=== PATIENT | male | born 1965 | race Caucasian/White ===

== ENCOUNTER 2017-01-09 08:50 | Day surgery (SDC) | payer BC ==
[~2017-01-09] VITALS: Ht 182.9 cm; Wt 47.2 kg
--- NOTE | ~2017-01-09 | OR ---
PATIENT'S NAME: ARIAN BLAIR [facility] AGE: 51 Y [address] ROOM: [place] [id number] LOCATION: [facility]OC ADMIT DATE: 01/09/2017 OR/Procedure Report DISCHARGE DATE: 01/10/2017 FAMILY PHYSICIAN: Katie Qureshi ATTENDING PHYSICIAN: Jason Kumar SURGEON: Jason Kumar MD EQUIPMENT LEAD: DATE OF PROCEDURE: 01/09/2017 PROCEDURE: Fiberoptic bronchoscopy with tumor ablation using argon plasma coagulation. INDICATION FOR PROCEDURE: Endobronchial tumor including the left mainstem with acute hypoxic respiratory failure. CONSENT: Risks and benefits of the procedure were discussed with the patient including the risk of bleeding, infection, and perforation of the trachea. The patient agrees to proceed with the procedure. PROCEDURE IN DETAIL: After the informed consent, proper time-out was called by me and the nursing staff and anesthesia. The patient was induced with general anesthesia, please refer to the Anesthesiology record. After an Olympus bronchoscope was passed through the endotracheal tube into the tracheobronchial tree, the right side was inspected briefly with no significant endobronchial lesions. The findings were described on the previous bronchoscopy. There was an endobronchial lesion that was blocking the ronn, 5% to 10% of the right mainstem and 99% to 100% of the left mainstem. After the initial inspection and suctioning, the area was cleaned using a flush of saline. Then, I tried to traverse the lesion, but I could not. After that, a probe was introduced through the bronchoscope, the APC was used using effect 5, module garrett, and an incision was made through the endobronchial lesion, multiple passes were made on the tumor, the tumor was reduced by 50% and the left mainstem opened by 50%. There was a gush of postobstructive pus that was suctioned out, the lesion could be traversed easily. After the initial airway opening, the area was then cauterized for bleeding. Hemostasis was achieved with an APC, I did have to do extra APC on the margins next to the ronn secondary to bleeding, which has stopped. After that, the remaining tumor was ablated on the surface with decreased PATIENT'S NAME: ARIAN BLAIR [facility] AGE: 51 Y [address] ROOM: [place] [id number] LOCATION: [facility]OC ADMIT DATE: 01/09/2017 OR/Procedure Report DISCHARGE DATE: 01/10/2017 FAMILY PHYSICIAN: Katie Qureshi ATTENDING PHYSICIAN: Jason Kumar. The bronchoscope was withdrawn. The patient tolerated the procedure well, and was extubated and transferred to PACU. Post-procedure, the patient did fairly well. There were no immediate complications. His breathing improved significantly. CONCLUSION: 1. Successful tumor ablation using APC, argon plasma coagulation. 2. Patent left main stem. 3. Stage IV lung cancer. Thank you for allowing me to participate in the care of this patient. MD DEEPIKA PLASCENCIA/kaylin /[id number] d: 01/28/17 0105 t: 01/31/17 0909, OPERATIVE SUMMARY
[~2017-01-09 08:50] MED LIST: AMBIEN5 MG PO; DELTASONE20 MG PO; KEPPRA500 MG PO; MEGACE SUSP40 MG/ML PO; NORCO 5-325 TA1 EACH PO; OXYCONTIN10 MG PO; PRILOSEC20 MG PO; TESSALON PERLE100 MG PO; ZOFRAN ODT8 MG PO; ZOLOFT100 MG PO
[2017-01-09 10:15] LABS: ALBUMIN 2.3 gm/dL (3.5-5.0); ALK PHOS 119 IU/L (33-138); ALT 15 IU/L (12-78); ANION GAP 14.7 (10.0-19.0); AST 28 IU/L (10-40); BLOOD UREA NITROGEN 13 mg/dL (6-24); CALCIUM 9.1 mg/dL (8.5-10.5); CHLORIDE 97 mMol/L (96-110); CO2 24 mMol/L (22-32); CREATININE 0.4 mg/dL (0.6-1.3); ESTIMATED GFR (MDRD EQUATION) > 60; SODIUM 132 mMol/L (135-145); TOTAL BILIRUBIN 0.4 mg/dL (0.0-1.5); TOTAL PROTEIN 7.3 g/dL (6.0-8.4)
[2017-01-09 10:17] LABS: POTASSIUM 3.7 mMol/L (3.7-5.1)
[2017-01-10] MEDS ORDERED: DELTASONE20 MG PO (12:05)
[2017-01-10] MEDS ORDERED: SYMBICORT 16010.2 GM INH (12:12)
[2017-01-13] MEDS ORDERED: PROMETHAZINE V118 ML PO (15:11)
== END 2017-01-10 12:48 | disposition disaster alternative care site (69) ==
LOC: GPOC 08:50 → GPCU 08:50 → GPOC 16:00
PROVIDERS: Nurse Anesthetist, Certified Registered
PROC: 0B578ZZ Destruction of Left Main Bronchus, Via Natural or Artificial Opening Endoscopic (ICD-10-PCS; principal; 2017-01-09)
DX: C34.11 Malignant neoplasm of upper lobe, right bronchus or lung (principal); C79.31 Secondary malignant neoplasm of brain; D51.9 Vitamin B12 deficiency anemia, unspecified; J96.01 Acute respiratory failure with hypoxia; Z79.899 Other long term (current) drug therapy
CPT/HCPCS: J1100; J1642; J2405; J2930; J7030

== ENCOUNTER → 2017-01-15 | Day surgery (SDC) | payer BC ==
[~2017-01-15] VITALS: Ht 182.9 cm; Wt 44.6 kg
[~2017-01-15] MED LIST changes: +PROMETHAZINE V118 ML PO; +SYMBICORT 16010.2 GM INH
--- NOTE | ~2017-01-15 | OR ---
PATIENT'S NAME: ARIAN BLAIR [facility] AGE: 51 Y [address] ROOM: [place] [id number] LOCATION: GEND ADMIT DATE: 01/15/2017 OR/Procedure Report DISCHARGE DATE: FAMILY PHYSICIAN: WIL DAIGLE ATTENDING PHYSICIAN: Jason Kumar SURGEON: Jason Kumar MD PHYSICIAN CHIEF OF PATHOLOGY: DATE OF PROCEDURE: 01/15/2017 INDICATION FOR PROCEDURE: Left mainstem obstruction with endobronchial lesion. PROCEDURE: Fiberoptic bronchoscopy with tumor ablation using argon plasma coagulation. PROCEDURE IN DETAIL: This is a repeat procedure for finishing ablating the tumor. After the induction of general anesthesia, proper time-out was called by the nursing staff. Olympus bronchoscope was introduced through the ET tube into the tracheobronchial tree. After evaluation of the area, the tumor has decreased to 25% obstruction. After the cleaning of the debris from the previous procedure the, APC probe was introduced into the working channel of the bronchoscope. The APC effect 3, module 5 was used with 5 garrett to ablate the remaining tumor. After 15 minutes of ablation, the tumor has completely been ablated and there was almost 85% to 90% patent left mainstem. After that, the area was cleaned out. There was no immediate bleeding. The debris was cleaned out using of biopsy forceps. The bronchoscope was removed. The patient tolerated the procedure well and was brought to PACU in stable condition. CONCLUSION: Successful ablation of an endobronchial lesion secondary to stage IV adenocarcinoma of the lung. MD DEEPIKA PLASCENCIA/kaylin /[id number] d: 01/28/170 t: 01/31/17908, OPERATIVE SUMMARY
== END ==
LOC: GPOC 01-13 15:00 → GEND 11:13 → GPOC 15:00
PROC: 0B578ZZ Destruction of Left Main Bronchus, Via Natural or Artificial Opening Endoscopic (ICD-10-PCS; principal; 2017-01-15)
DX: D38.1 Neoplasm of uncertain behavior of trachea, bronchus and lung (principal); C79.31 Secondary malignant neoplasm of brain; C34.11 Malignant neoplasm of upper lobe, right bronchus or lung; G47.33 Obstructive sleep apnea (adult) (pediatric); J96.00 Acute respiratory failure, unspecified whether with hypoxia or hypercapnia; K59.09 Other constipation; R00.0 Tachycardia, unspecified; Z98.890 Other specified postprocedural states; Z79.891 Long term (current) use of opiate analgesic; Z79.899 Other long term (current) drug therapy; Z79.52 Long term (current) use of systemic steroids
CPT/HCPCS: J1642; J2001; J7030